=== PATIENT | female | born 2000 | race Two or more races ===

== ENCOUNTER 2023-01-21 19:57 | Inpatient (IN) | payer MEDICAID, SELFPAY ==
[2023-01-21 20:04] VITALS: BP 94/61; PULSE 78; RESP 18; TEMP 36.5; O2SAT 92
[2023-01-21 21:01] LABS: PCR FLU A Negative PCR FLU A (Negative); PCR FLU B Negative PCR FLU B (Negative); PCR RSV Negative PCR RSV (Negative)
[2023-01-21 21:07] VITALS: RESP 16
[2023-01-21 21:27] LABS: SARS PCR* Negative SARS-CoV-2 (Negative)
[2023-01-21 21:52] LABS: Basophils Absolute Auto 0.05 K/uL (0.00-0.30); Basophils Percent Auto 0.8 % (0.0-3.0); Eosinophils Absolute Auto 0.02 K/uL (0.00-0.50); Eosinophils Percent Auto 0.3 % (0.0-7.0); Hematocrit 33.8 % (33.0-51.0); Hemoglobin* 12.4 gm/dL (12.0-16.0); Immature Granulocytes Abs Auto 0.04 K/uL (0.00-0.30); Immature Granulocytes Pct Auto 0.7 %; Lymphocytes Absolute Auto 1.26 K/uL (0.90-2.90); Mean Corpuscular HGB Conc 37 gm/dL (32-36); Mean Corpuscular Hemoglobin 32 pg (26-34); Mean Corpuscular Volume 87 fL (80-100); Monocytes Percent Auto 11.9 % (0.0-11.0); Neutrophils Absolute Auto 3.91 K/uL (1.7-7.0); Neutrophils Percent Auto 65.3 % (42.0-72.0); Platelet Count* 390 K/uL (140-440); RDW Coefficient of Variation % 11.9 % (11.5-15.5); White Blood Count* 5.99 K/uL (4.50-11.00)
[2023-01-21 21:58] LABS: Slide Review Reflex No
--- NOTE | 2023-01-21 22:00 | CRLHL7_ITS ---
For Patients: As a result of the Cures Act, medical imaging exams and procedure reports are released immediately into your electronic medical record. You may view this report before your referring provider. If you have questions, please contact your health care provider. INDICATION: Chest pain. TECHNIQUE: Chest radiographs, 1 view. COMPARISON: None. FINDINGS: Lines/Tubes/Devices: None. Mediastinum: Normal cardiac silhouette. Lungs: No focal consolidation. Airways: The trachea remains midline. Pleura: No pleural effusions or pneumothorax. Bones: No acute osseous abnormalities. Upper Abdomen: Unremarkable. IMPRESSION: No acute cardiopulmonary process. Dictated by Kane Nicolas MD @ 01/21/2023 10:31:45 PM (Electronically Signed)
[2023-01-21 22:04] VITALS: BP 95/59; PULSE 68; RESP 16; O2SAT 100
[2023-01-21] MEDS: 0.9 % SODIUM CHLORIDE 1000 ml 1,000 ML IV (22:08)
--- NOTE | 2023-01-21 22:20 | ED.NURSE ---
K 1.6, Co2 over 40, Na 123 - updated to MD nunez
[2023-01-21] MEDS: 0.9 % SODIUM CHLORIDE 1000 ml 1,000 ML 250 ML IV (23:03)
[2023-01-21 23:18] LABS: Anion Gap 10 mEq/L (7-15); Blood Urea Nitrogen* 35 mg/dL (5-24); Chloride* 63 mmol/L (96-114); Sodium* 125 mmol/L (135-149)
[2023-01-21 23:19] LABS: Alanine Aminotransferase* 24 U/L (4-35); Albumin* 4.8 g/dL (3.3-5.0); Bilirubin Direct* 0.2 mg/dL (0.0-0.5); Bilirubin Total* 0.8 mg/dL (0.1-1.5); Calcium* 9.2 mg/dL (8.4-10.6); Ethanol* < 0.01 % (0.01-0.03); Glucose* 99 mg/dL (60-115); Magnesium* 1.8 mg/dL (1.5-2.6); Total Protein* 8.3 g/dL (6.0-8.3)
[2023-01-21 23:21] LABS: Carbon Dioxide* 52 mmol/L (20-32); Potassium* 2.8 mmol/L (3.6-5.1)
[2023-01-21 23:23] LABS: Procalcitonin* 0.04 ng/mL (<0.50)
[2023-01-21 23:24] LABS: C Reactive Protein* < 0.5 mg/dL (0.5-1.0)
[2023-01-21 23:26] LABS: HCO3 VBG 59 mmol/L (21-28); PCO2 VBG 58 mmHG (40-50); PO2 VBG < 20.0 mmHG (25-47)
[2023-01-21 23:27] LABS: pH VBG 7.66 (7.32-7.43)
[2023-01-21 23:28] LABS: Troponin I* < 0.01 ng/mL (0.01-0.04)
[2023-01-21 23:31] VITALS: BP 98/58; PULSE 64; RESP 14; O2SAT 98
[2023-01-21 23:44] LABS: D Dimer Quantitative* < 0.27 ug/ml (0.00-0.50)
[2023-01-21 23:53] LABS: Thyroid Stimulating Hormone* 0.703 uIU/mL (0.270-4.20)
[2023-01-22] VITALS (13 sets, daily range): BP systolic 76–110; BP diastolic 46–78; PULSE 58–72; RESP 12–18; TEMP 36.4–36.8; O2SAT 96–100; BMI 17.1
[2023-01-22] MEDS: POTASSIUM CHLORIDE 10 MEQ CAPSULE ER 40 MEQ PO ×2 (00:19→04:05)
[2023-01-22] MEDS: POTASSIUM CHLORIDE 10 MEQ/100 ML PIGGYBACK 100 MEQ IVPB ×3 (00:19→05:15)
[2023-01-22 00:20] LABS: Alkaline Phosphatase* 60 U/L (40-150); Aspartate Amino Transferase* 41 U/L (12-35); Creatinine* 1.1 mg/dL (0.5-1.5); Estimated Glomerular Filt Rate 72 ml/min
--- NOTE | 2023-01-22 00:48 | ED.GENADULT ---
HPI - General Adult General Date Seen: 01/22/23 Chief complaint: Shortness of Breath/Dyspnea Stated complaint: Weakness, sick for a week Time Seen by Provider: 01/21/23 20:23 Source: patient and family Mode of arrival: ambulatory Limitations: no limitations History of Present Illness HPI narrative: Patient is a 22-year-old female presents here with her family a feeling unwell for the past week to 2 weeks. She is really nonspecific concerns, as mild shortness of breath headache, overall weakness. She denies any fevers or chills associated with this any sore throat. She denies any redness rashes, she denies any chest pain at all. She does have a history of an eating disorder, was previously in the [employer] program for this. This was in 2021. She tells me she has had been doing well. However there is some concerns with her family that she has relapses they found a lot of old boxes of cathartics in her room. She denies any use of alcohol or drugs. She has a physician in [place]. They live here in [place] but will not established with any physicians here. Family thing she has may have lost weight although she denies this. Related Data Home Medications Medication Instructions Recorded Confirmed No Known Home Medications 01/21/23 01/21/23 Allergies Allergy/AdvReac Type Severity Reaction Status Date / Time No Known Drug Allergies Allergy Verified 01/21/23 20:04 Review of Systems Status of ROS: Reports: 10 or more systems reviewed and unremarkable except as noted in History and below PFSH PFSH Social History Smoking Status: Never smoker Non-prescribed substance use: denies use Exam Narrative: Exam Narrative: On examination in room 5, joe complexion alert and oriented x3, GCS is 15/15, her eyes are sunken. Her pupils are equal round reactive to light there is no scleral icterus redness or TMs are normal oropharynx is normal. Her neck is supple her hydration status of her mucous membranes is normal, she is very thin. Chest is good air entry bilaterally with no wheezing crackles noted her heart sounds are normal current no clicks murmurs or gallops her abdomen is soft and scaphoid. There is no guarding or organomegaly noted. She moves all extremities independently well. Because the has lanugo Const: Vital Signs, click to edit/add: Vital Signs - 24 hr 01/21/23 20:04 12/12/23 21:07 01/21/23 22:04 Temperature 97.7 F Pulse Rate [Pulse Oximeter] 78 68 Respiratory Rate 18 16 16 Blood Pressure [Ri ght Upper Arm] 94/61 95/59 L Pulse Oximetry 92 100 Oxygen Delivery Me thod 01/21/23 23:31 Temperature Pulse Rate [Pulse Oximeter] 64 Respiratory Rate 14 Blood Pressure [Ri ght Upper Arm] 98/58 L Pulse Oximetry 98 Oxygen Delivery Me thod Room Air Documenting provider has reviewed patient's vital signs: yes Course Course ED Course: Patient was seen and assessed, I do suspect that she is dehydrated and this was borne out with her laboratory works, her sodium is critically low at 123, her potassium is low at 2.8, her BUN and creatinine are also high, consistent with pre renal. We have no beds available in [place] currently. And no beds at this institution. We will have to keep her in the ER replenish her fluids. I was able to contact our [facility] health hospitalist.Vahid Samuels, he help me with the fluids, he said replace the potassium hold the fluids for now after she has received approximately to 1250 mL of normal saline. We do not Wanna bring the sodium back to Fast, 6 mEq in 24 hours. He suggested piggyback IV bumps of potassium, along with oral potassium. Recheck basic metabolic profile in 2-3 hours. Reevaluation(s) Time of Reevaluation #1: 01:17 Reevaluation #1: signed over to oncoming ER physician Vital Signs Vital signs: Initial Vital Signs Temperature 97.7 F 01/21/23 20:04 Temperature Source Temporal Artery Scan 01/21/23 20:04 Pulse Rate 78 01/21/23 20:04 Respiratory Rate 18 01/21/23 20:04 Blood Pressure 94/61 01/21/23 20:04 Blood Pressure Mean 72 01/21/23 20:04 Pulse Oximetry 92 01/21/23 20:04 Vital Signs Temperature 97.7 F 01/21/23 20:04 Pulse Rate 78 01/21/23 20:04 Respiratory Rate 18 01/21/23 20:04 Blood Pressure 94/61 01/21/23 20:04 Pulse Oximetry 92 01/21/23 20:04 Temperature 97.7 F 01/21/23 20:04 Pulse Rate 64 01/21/23 23:31 Respiratory Rate 14 01/21/23 23:31 Blood Pressure 98/58 L 01/21/23 23:31 Pulse Oximetry 98 01/21/23 23:31 Oxygen Delivery Method Room Air 01/21/23 23:31 Medications Administered Medications: Generic Name Dose Route Start Last Admin Trade Name Brenna PRN Reason Stop Dose Admin Potassium Chloride 40 meq 01/22/23 00:16 01/22/23 00:19 Potassium Chloride 10 Meq Capsule Er PO 01/22/23 00:17 40 meq ONCE ONE Administration Discontinued Medications Generic Name Dose Route Start Last Admin Trade Name Brenna PRN Reason Stop Dose Admin Sodium Chloride 1,000 mls @ 1,000 mls/hr 01/21/23 21:30 01/21/23 23:03 0.9 % Sodium Chloride 1000 Ml IV 01/21/23 22:29 Infused .Q1H JULIANA Infusion Sodium Chloride 1,000 mls @ 1,000 mls/hr 01/21/23 21:30 01/21/23 23:03 0.9 % Sodium Chloride 1000 Ml IV 01/21/23 22:29 250 mls/hr .Q1H JULIANA Administration Potassium Chloride 10 meq in 100 mls @ 100 mls/hr 01/21/23 23:43 01/22/23 00:19 Potassium Chloride IVPB 01/22/23 00:42 100 mls/hr ONCE ONE Administration Medical Decision Making MDM Narrative Medical decision making narrative: Life-threatening differential diagnosis considered include stroke, coronary artery disease, pneumonia, and heart failure. Other differential diagnosis include but are not limited to electrolyte imbalances, anemia, medication reactions, and urinary tract infection Medical Records Medical records reviewed: Yes I reviewed the patient's medical records Lab Data Lab results reviewed: Yes I reviewed the patient's lab results Labs: Lab Results 01/21/23 01/21/23 01/21/23 Range/Units 20:10 21:40 22:01 WBC 5.99 (4.50-11.00) K/uL RBC 3.90 L (4.00-5.20) m/uL Hgb 12.4 (12.0-16.0) gm/dL Hct 33.8 (33.0-51.0) % MCV 87 (80-100) fL MCH 32 (26-34) pg MCHC 37 H (32-36) gm/dL RDW Coeff of Coy 11.9 (11.5-15.5) % Plt Count 390 (140-440) K/uL Neut % (Auto) 65.3 (42.0-72.0) % Lymph % (Auto) 21.0 (20-44) % Glynn % (Auto) 11.9 H (0.0-11.0) % Eos % (Auto) 0.3 (0.0-7.0) % Baso % (Auto) 0.8 (0.0-3.0) % Neut # (Auto) 3.91 (1.7-7.0) K/uL Lymph # (Auto) 1.26 (0.90-2.90) K/uL Glynn # (Auto) 0.70 (0.00-0.90) K/UL Eos # (Auto) 0.02 (0.00-0.50) K/uL Baso # (Auto) 0.05 (0.00-0.30) K/uL Abs Immat Gran (auto) 0.04 (0.00-0.30) K/uL Imm/Tot Granulo (auto) 0.7 % D-Dimer Quant (PE/DVT) (0.00-0.50) ug/ml VBG pH (7.32-7.43) VBG pCO2 (40-50) mmHG VBG pO2 (25-47) mmHG VBG HCO3 (21-28) mmol/L Sodium 125 L (135-149) mmol/L Potassium 2.8 L* (3.6-5.1) mmol/L Chloride 63 L (96-114) mmol/L Carbon Dioxide 52 H* (20-32) mmol/L Anion Gap 10 (7-15) mEq/L BUN 35 H (5-24) mg/dL Creatinine 1.1 (0.5-1.5) mg/dL Estimated GFR 72 ml/min Glucose 99 (60-115) mg/dL Calcium 9.2 (8.4-10.6) mg/dL Magnesium 1.8 (1.5-2.6) mg/dL Total Bilirubin 0.8 (0.1-1.5) mg/dL Direct Bilirubin 0.2 (0.0-0.5) mg/dL AST 41 H (12-35) U/L ALT 24 (4-35) U/L Alkaline Phosphatase 60 (40-150) U/L Troponin I (0.01-0.04) ng/mL C-Reactive Protein < 0.5 L (0.5-1.0) mg/dL Total Protein 8.3 (6.0-8.3) g/dL Albumin 4.8 (3.3-5.0) g/dL Procalcitonin 0.04 (<0.50) ng/mL TSH 0.703 (0.270-4.20) uIU/mL Urine Color (Yellow) Urine Appearance (Clear) Urine pH (5.0-8.5) Ur Specific Rosebud (1.000-1.030) Urine Protein (Negative) Urine Glucose (UA) (Negative) Urine Ketones (Negative) Urine Blood (Negative) Urine Nitrite (Negative) Urine Bilirubin (Negative) Urine Urobilinogen (0.2-1.0) Ur Leukocyte Esterase (Negative) Urine RBC (0-2) Urine WBC (0-5) Ur Squamous Epith Cells (None-Few) Amorphous Sediment (None) Urine Bacteria (None) Urine Mucus (None) Urine HCG, Qual (Negative) Urine Opiates Screen (Negative) Ur Oxycodone Screen (Negative) Urine Methadone Screen (Negative) Ur Propoxyphene Screen (Negative) Ur Barbiturates Screen (Negative) U Tricyclic Antidepress (Negative) Ur Phencyclidine Scrn (Negative) Ur Amphetamines Screen (Negative) U Methamphetamines Scrn (Negative) U Benzodiazepines Scrn (Negative) Urine Cocaine Screen (Negative) U Marijuana (THC) Screen (Negative) Ur Drug Screen Comment Ethyl Alcohol < 0.01 L (0.01-0.03) % SARS-CoV-2 (PCR) Negative SARS-CoV-2 (Negative) Influenza Type A (PCR) Negative PCR FLU A (Negative) Influenza Type B (PCR) Negative PCR FLU B (Negative) RSV (PCR) Negative PCR RSV (Negative) Lab Acknowledgement Test Added 01/21/23 01/21/23 01/22/23 Range/Units 22:26 22:38 00:40 WBC (4.50-11.00) K/uL RBC (4.00-5.20) m/uL Hgb (12.0-16.0) gm/dL Hct (33.0-51.0) % MCV (80-100) fL MCH (26-34) pg MCHC (32-36) gm/dL RDW Coeff of Coy (11.5-15.5) % Plt Count (140-440) K/uL Neut % (Auto) (42.0-72.0) % Lymph % (Auto) (20-44) % Glynn % (Auto) (0.0-11.0) % Eos % (Auto) (0.0-7.0) % Baso % (Auto) (0.0-3.0) % Neut # (Auto) (1.7-7.0) K/uL Lymph # (Auto) (0.90-2.90) K/uL Glynn # (Auto) (0.00-0.90) K/UL Eos # (Auto) (0.00-0.50) K/uL Baso # (Auto) (0.00-0.30) K/uL Abs Immat Gran (auto) (0.00-0.30) K/uL Imm/Tot Granulo (auto) % D-Dimer Quant (PE/DVT) < 0.27 (0.00-0.50) ug/ml VBG pH 7.66 H* (7.32-7.43) VBG pCO2 58 H (40-50) mmHG VBG pO2 < 20.0 L (25-47) mmHG VBG HCO3 59 H (21-28) mmol/L Sodium (135-149) mmol/L Potassium (3.6-5.1) mmol/L Chloride (96-114) mmol/L Carbon Dioxide (20-32) mmol/L Anion Gap (7-15) mEq/L BUN (5-24) mg/dL Creatinine (0.5-1.5) mg/dL Estimated GFR ml/min Glucose (60-115) mg/dL Calcium (8.4-10.6) mg/dL Magnesium (1.5-2.6) mg/dL Total Bilirubin (0.1-1.5) mg/dL Direct Bilirubin (0.0-0.5) mg/dL AST (12-35) U/L ALT (4-35) U/L Alkaline Phosphatase (40-150) U/L Troponin I < 0.01 L (0.01-0.04) ng/mL C-Reactive Protein (0.5-1.0) mg/dL Total Protein (6.0-8.3) g/dL Albumin (3.3-5.0) g/dL Procalcitonin (<0.50) ng/mL TSH (0.270-4.20) uIU/mL Urine Color Yellow (Yellow) Urine Appearance Cloudy A (Clear) Urine pH 8.5 (5.0-8.5) Ur Specific Rosebud 1.015 (1.000-1.030) Urine Protein 2+ A (Negative) Urine Glucose (UA) Negative (Negative) Urine Ketones 1+ A (Negative) Urine Blood Negative (Negative) Urine Nitrite Negative (Negative) Urine Bilirubin Negative (Negative) Urine Urobilinogen 0.2 (0.2-1.0) Ur Leukocyte Esterase Negative (Negative) Urine RBC 0-2 (0-2) Urine WBC 0-2 (0-5) Ur Squamous Epith Cells Few (None-Few) Amorphous Sediment Few A (None) Urine Bacteria Few A (None) Urine Mucus Few A (None) Urine HCG, Qual Negative (Negative) Urine Opiates Screen Negative (Negative) Ur Oxycodone Screen Negative (Negative) Urine Methadone Screen Negative (Negative) Ur Propoxyphene Screen Negative (Negative) Ur Barbiturates Screen Negative (Negative) U Tricyclic Antidepress Negative (Negative) Ur Phencyclidine Scrn Negative (Negative) Ur Amphetamines Screen Negative (Negative) U Methamphetamines Scrn Negative (Negative) U Benzodiazepines Scrn Negative (Negative) Urine Cocaine Screen Negative (Negative) U Marijuana (THC) Screen Negative (Negative) Ur Drug Screen Comment See Note Ethyl Alcohol (0.01-0.03) % SARS-CoV-2 (PCR) (Negative) Influenza Type A (PCR) (Negative) Influenza Type B (PCR) (Negative) RSV (PCR) (Negative) Lab Acknowledgement Test Added Discharge Plan Discharge Clinical Impression: Acute dehydration, History of eating disorder, Weakness, Acute hyponatremia, Acute hypokalemia Patient Disposition: Admitted As Observation Condition: Guarded Prescriptions: No Action No Known Home Medications Follow Up/Referrals: Provider,Not a Local [Primary Care Provider] -
[2023-01-22 00:59] LABS: Appearance Urine Cloudy (Clear); Bilirubin Urine Negative (Negative); Blood Urine Negative (Negative); Color Urine Yellow (Yellow); Glucose Urine Negative (Negative); Ketones Urine 1+ (Negative); Leukocyte Esterase Urine Negative (Negative); Nitrite Urine Negative (Negative); Protein Urine 2+ (Negative); Specific Gravity Urine 1.015 (1.000-1.030); Urobilinogen Urine 0.2 (0.2-1.0); pH Urine 8.5 (5.0-8.5)
[2023-01-22 01:06] LABS: Amorphous Sediment Urine Few; Bacteria Urine Few; Mucus Urine Few; RBC Urine 0-2 (0-2); Squamous Epithelial Cell Urine Few (None-Few); Ur HCG Qualitative* Negative (Negative); WBC Urine 0-2 (0-5)
[2023-01-22 01:08] LABS: Amphetamine Screen Urine Negative (Negative); Barbiturate Screen Urine Negative (Negative); Benzodiazepines Screen Urine Negative (Negative); Cannabinoid Screen Urine Negative (Negative); Cocaine Screen Urine Negative (Negative); Methadone Screen Urine Negative (Negative); Methamphetamines Screen Urine Negative (Negative); Opiate Screen Urine Negative (Negative); Oxycodone Screen Urine Negative (Negative); Phencyclidine Screen Urine Negative (Negative); Tricyclic Antidepressant Urine Negative (Negative)
[2023-01-22] MEDS: 0.9 % SODIUM CH + KCL 20 mEq/L 1,000 ML 100 ML IV ×2 (04:15→15:08)
[2023-01-22 06:39] LABS: Chloride* 67 mmol/L (96-114); Potassium* 2.1 mmol/L (3.6-5.1); Sodium* 124 mmol/L (135-149)
[2023-01-22 06:40] LABS: Anion Gap 5 mEq/L (7-15); Blood Urea Nitrogen* 30 mg/dL (5-24); Calcium* 8.5 mg/dL (8.4-10.6); Carbon Dioxide* 52 mmol/L (20-32); Estimated Glomerular Filt Rate 81 ml/min; Glucose* 96 mg/dL (60-115); Phosphorus* 3.5 mg/dL (2.5-4.5)
--- NOTE | 2023-01-22 07:33 | ED.NURSE ---
Pt ambulatory to the restroom independently.
--- NOTE | 2023-01-22 08:00 | ED.NURSE ---
Report called to M/S RN.
[2023-01-22 08:31] LABS: Chloride* 74 mmol/L (96-114); Sodium* 128 mmol/L (135-149)
[2023-01-22 08:34] LABS: Blood Urea Nitrogen* 25 mg/dL (5-24); Creatinine* 0.9 mg/dL (0.5-1.5); Est. Creatinine Clearance* 69.31; Estimated Glomerular Filt Rate 92 ml/min; Glucose* 98 mg/dL (60-115)
[2023-01-22 08:35] LABS: Calcium* 9.2 mg/dL (8.4-10.6)
[2023-01-22 08:49] LABS: Potassium* 2.7 mmol/L (3.6-5.1)
[2023-01-22 08:50] LABS: Anion Gap 8 mEq/L (7-15); Carbon Dioxide* 46 mmol/L (20-32)
--- NOTE | 2023-01-22 09:57 | CRLHL7_ITS ---
For Patients: As a result of the Century Cures Act, medical imaging exams and procedure reports are released immediately into your electronic medical record. You may view this report before your referring provider. If you have questions, please contact your health care provider. Indication: abdominal pain, constipation Technique: Abdomen 1 view. Comparison: None. Findings: Bowel: Bowel pattern is normal. The amount of colonic stool is moderate. Other: No sign of free air. No sign of soft tissue mass. No suspicious calcifications. Osseous structures are unremarkable for age. Impression: Moderate stool throughout the colon consistent with constipation. Dictated by Brock Young MD @ 01/22/2023 10:49:21 AM (Electronically Signed)
[2023-01-22 10:34] LABS: Chloride* 77 mmol/L (96-114); Sodium* 128 mmol/L (135-149)
[2023-01-22 10:37] LABS: Blood Urea Nitrogen* 24 mg/dL (5-24); Calcium* 9.1 mg/dL (8.4-10.6); Creatinine* 0.9 mg/dL (0.5-1.5); Est. Creatinine Clearance* 69.31; Estimated Glomerular Filt Rate 92 ml/min; Glucose* 98 mg/dL (60-115)
[2023-01-22 10:58] LABS: Anion Gap 8 mEq/L (7-15); Carbon Dioxide* 43 mmol/L (20-32)
--- NOTE | 2023-01-22 11:32 | P.IMHP_ITS ---
Hospitalist- H&P: HPI History of Present Illness Date Seen: 01/22/23 Chief complaint: Weakness, sick for a week Narrative: Sun Mcgovern is a 22 year old female past medical history significant for anorexia nervosa with bulimia, laxative misuse, amenorrheic, not on any prescription medications is admitted to the medical floor from the ED for further management electrolyte derangement, dehydration. Patient is seen with her mother at bedside. She reports not feeling well in general for the past 2 weeks. Initially felt as though she had an upper respiratory infection, with occasional cough, ear fullness. This progressed to weakness, mentation which she finds hard to describe other than similar to fogginess, dizziness with presyncopal sensation (without syncope), nausea and vomiting, and decreased oral intake in the past week. She last vomited on 01/17. She has decreased bowel movements which she figured were related to poor oral intake. Her last bowel movement was yesterday but small and hard. Denies black stools or streaking blood. Denies change in urination or UTI symptoms. She has had occasional headaches but none currently. Dizziness has improved since admission. She felt feverish over the last several days but no temperature taken. Denies chest pain or shortness of breath. No significant cough. Reports stomach aches leading to decreased oral intake. She has a history of anorexia nervosa with bulimia, previously treated inpatient from November to December 2019. This was followed by outpatient management in [facility] in February of 2020. She denies recent active disease or misuse of laxatives. She reports eating a lot prior to not feeling well a couple of weeks ago. She denies use of laxatives thereafter though it was reported her mother found an empty box of laxatives in her belongings. Her mother is concerned that her previous patterns were to eat a lot and then use the laxative. She is concerned how this affects her health. Nonsmoker. Occasional alcohol use every 1-2 [address] drug use. She has never been . She does not get a regular period which her PCP told her would be her new normal with her eating disorder. Review of Systems Narrative: REVIEW OF SYSTEMS: Complete review of systems performed and negative unless otherwise stated in HPI or below. [facility] Medical History Anorexia nervosa with bulimia ?F50.02 - Anorexia nervosa, binge eating/purging type (ICD-10) Surgical History History of placement of ear tubes ?Z96.22 - Myringotomy tube(s) status (ICD-10) Social History What is your current living situation?: I presently have a place to live Problems where you live: no known problems Problems where you live details: none In the past 12 months, utilities in danger of being shut off: no In past 12 months, lack of transportation kept you from medical appts, meetings, work, or getting things needed for daily living: no In the past 12 mos, have been you worried that your food would run out before you had money to buy more?: never true In the past 12 mos, the food you bought just didn't last and you didn't have money to buy more?: never true Highest level of school completed/degree received: Associate degree: occupational, technical, vocational program Smoking Status: Never smoker How often do you have a drink containing alcohol: monthly or less Alcohol type: hard liquor How many standard drinks containing alcohol do you have on a typical day: 1 or 2 How often do you have six or more drinks on one occasion: Never AUDIT-C Alcohol total score: 1 Non-prescribed substance use: denies use How often does anyone, including family, friends and others, physically hurt you : never How often does anyone, including family, friends and others, insult or talk down to you: never How often does anyone, including family, friends and others, threaten you with harm: never How often does anyone, including family, friends and others, scream or curse at you: never service: No Meds Home Medications and Allergies Home Medications Medication Instructions Recorded Confirmed Type No Known Home Medications 01/21/23 01/21/23 History Home Medication Comments: No prescription medications Allergies Allergy/AdvReac Type Severity Reaction Status Date / Time No Known Drug Allergies Allergy Verified 01/21/23 20:04 Exam Narrative: Exam Narrative: PHYSICAL EXAM General: Very thin, pleasant, conversant, NAD HEENT: Normocephalic, atraumatic, sclera white, EOMI, oral mucosa moist Cardiovascular: RRR, S1S2. No pitting edema Pulmonary: CTA bilaterally without rhonchi, rales, expiratory wheezes. No dyspnea Abdominal: Thin, soft, nondistended, NTTP, no guarding Neurological: Alert, answering questions appropriately, cranial nerves intact, no focal findings Extremities: No gross joint deformity or swelling. AROMI. Neurovascularly intact Skin: Warm, dry. Const: Vital Signs, click to edit/add: Vital Signs - 24 hr 01/21/23 20:04 01/21/23 21:07 01/21/23 22:04 Temperature 97.7 F Pulse Rate Pulse Rate [Pulse Oximeter] 78 68 Pulse Rate [orthos tatic lying Left] Pulse Rate [orthos tatic sitting Left ] Pulse Rate [orthos tatic standing Lef t] Respiratory Rate 18 16 16 Blood Pressure [Le ft Arm] Blood Pressure [Ri ght Upper Arm] 94/61 95/59 L Blood Pressure [or thostatic lying Le ft Arm] Blood Pressure [or thostatic sitting Left Arm] Blood Pressure [or thostatic standing Left Arm] Pulse Oximetry 92 100 Oxygen Delivery Me thod 01/21/23 23:31 01/22/23 00:00 01/22/23 04:15 Temperature 98.2 F Pulse Rate Pulse Rate [Pulse Oximeter] 64 68 Pulse Rate [orthos tatic lying Left] Pulse Rate [orthos tatic sitting Left ] Pulse Rate [orthos tatic standing Lef t] Respiratory Rate 14 14 Blood Pressure [Le ft Arm] Blood Pressure [Ri ght Upper Arm] 98/58 L 110/78 Blood Pressure [or thostatic lying Le ft Arm] Blood Pressure [or thostatic sitting Left Arm] Blood Pressure [or thostatic standing Left Arm] Pulse Oximetry 98 98 98 Oxygen Delivery Me thod Room Air Room Air 01/22/23 06:51 01/22/23 07:34 01/22/23 08:07 Temperature 98.2 F 97.6 F Pulse Rate Pulse Rate [Pulse Oximeter] 68 58 L 64 Pulse Rate [orthos tatic lying Left] Pulse Rate [orthos tatic sitting Left ] Pulse Rate [orthos tatic standing Lef t] Respiratory Rate 14 14 Blood Pressure [Le ft Arm] 97/55 L Blood Pressure [Ri ght Upper Arm] 103/67 97/53 L Blood Pressure [or thostatic lying Le ft Arm] Blood Pressure [or thostatic sitting Left Arm] Blood Pressure [or thostatic standing Left Arm] Pulse Oximetry 98 99 100 Oxygen Delivery Me thod Room Air Room Air Room Air 01/22/23 10:40 01/22/23 10:48 01/22/23 11:06 Temperature 98 F Pulse Rate Pulse Rate [Pulse Oximeter] 64 Pulse Rate [orthos tatic lying Left] 65 Pulse Rate [orthos tatic sitting Left ] 65 Pulse Rate [orthos tatic standing Lef t] 72 Respiratory Rate 14 12 Blood Pressure [Le ft Arm] 86/51 L Blood Pressure [Ri ght Upper Arm] Blood Pressure [or thostatic lying Le ft Arm] 90/54 L Blood Pressure [or thostatic sitting Left Arm] 94/62 Blood Pressure [or thostatic standing Left Arm] 96/66 Pulse Oximetry 99 99 Oxygen Delivery Me thod Room Air Room Air 01/22/23 11:06 01/22/23 11:18 Temperature 98 F Pulse Rate 64 Pulse Rate [Pulse Oximeter] 65 Pulse Rate [orthos tatic lying Left] Pulse Rate [orthos tatic sitting Left ] Pulse Rate [orthos tatic standing Lef t] Respiratory Rate 12 Blood Pressure [Le ft Arm] 90/54 L Blood Pressure [Ri ght Upper Arm] Blood Pressure [or thostatic lying Le ft Arm] Blood Pressure [or thostatic sitting Left Arm] Blood Pressure [or thostatic standing Left Arm] Pulse Oximetry 99 Oxygen Delivery Me thod Room Air Hospitalist - H&P: Result Labs Labs: Short CBC 01/21/23 Range/Units 21:40 WBC 5.99 (4.50-11.00) K/uL Hgb 12.4 (12.0-16.0) gm/dL Hct 33.8 (33.0-51.0) % Plt Count 390 (140-440) K/uL BMP 01/21/23 01/22/23 01/22/23 21:40 03:10 08:09 Sodium 125 L 124 L* 128 L Potassium 2.8 L* 2.1 L* 2.7 L* Chloride 63 L 67 L 74 L Carbon Dioxide 52 H* 52 H* 46 H* BUN 35 H 30 H 25 H Creatinine 1.1 1.0 0.9 Glucose 99 96 98 Calcium 9.2 8.5 9.2 01/22/23 10:12 Sodium 128 L Potassium 3.0 L Chloride 77 L Carbon Dioxide 43 H* BUN 24 Creatinine 0.9 Glucose 98 Calcium 9.1 Cardiac Enzymes 01/21/23 Range/Units 22:38 Troponin I < 0.01 L (0.01-0.04) ng/mL Liver Function 01/21/23 Range/Units 21:40 Total Bilirubin 0.8 (0.1-1.5) mg/dL Direct Bilirubin 0.2 (0.0-0.5) mg/dL AST 41 H (12-35) U/L ALT 24 (4-35) U/L Alkaline Phosphatase 60 (40-150) U/L Albumin 4.8 (3.3-5.0) g/dL Urine 01/22/23 Range/Units 00:40 Urine Color Yellow (Yellow) Urine Appearance Cloudy A (Clear) Urine pH 8.5 (5.0-8.5) Ur Specific [place] 1.015 (1.000-1.030) Urine Protein 2+ A (Negative) Urine Glucose (UA) Negative (Negative) ECG Attestation: I personally reviewed and interpreted this ECG as follows: Interpretation: NSR, prolonged QT/QTC Imaging Abdominal x-ray: Attestation: I have reviewed the pertinent imaging results. Radiologist's impression: Abdomen 1 view. Comparison: None. Findings: Bowel: Bowel pattern is normal. The amount of colonic stool is moderate. Other: No sign of free air. No sign of soft tissue mass. No suspicious calcifications. Osseous structures are unremarkable for age. Impression: Moderate stool throughout the colon consistent with constipation Chest x-ray: Attestation: I have reviewed the pertinent imaging results. Radiologist's impression: Chest radiographs, 1 view. COMPARISON: None. FINDINGS: Lines/Tubes/Devices: None. Mediastinum: Normal cardiac silhouette. Lungs: No focal consolidation. Airways: The trachea remains midline. Pleura: No pleural effusions or pneumothorax. Bones: No acute osseous abnormalities. Upper Abdomen: Unremarkable. IMPRESSION: No acute cardiopulmonary process. Assessment and Plan Assessment and plan (1) Acute hypokalemia: Problem comment: -in setting of decreased oral intake, h/o (denies active) anorexia nervosa with bulimia with laxative use, acute constipation -initial potassium in the ED verbally reported as <2.0. EKG shows NSR, prolonged QT. QTC 517, ventricular rate 66 -improved to 3.0 following oral and IV supplementation -continue replacement and close monitoring -recheck at 1400pm Status: Acute (2) Acute hyponatremia: Problem comment: -sodium 125 in ED -improved to 128 following NS bolus and maintenance fluids -goal 4-6 mEq/L over 24 hour period -recheck at 1400pm Status: Acute (3) History of eating disorder: Problem comment: -denies active disease or intentional misuse of laxatives -dx with Anorexia Nervosa with bulimia. Use of laxatives. Inpatient treatment Nov-Dec 2019 followed by outpatient therapy, [facility], Feb 2020 -social work administrator for evaluation Status: Acute (4) Acute dehydration: Problem comment: -in setting of poor oral intake, electrolyte derangement -IVF hydration, electrolyte replacement, monitoring -IV Compazine p.r.n. for any further nausea. Avoiding Zofran given prolonged QTC, history of eating disorder Status: Acute (5) Constipation: Problem comment: -reported abdominal discomfort with eating prior to arrival leading to decreased oral intake. No bleeding concerns reported. Abdominal film shows moderate stool throughout the colon which may be partial cause -bid docusate sodium. Would avoid laxative use given history of misuse and current electrolyte derangement -consider further imaging if new or worsening symptoms or no resolve Status: Acute (6) Weakness: Problem comment: -in setting of above. Should improve with current therapies. Monitor -given decreased activity, will use Enoxaparin as VTE until more mobile Status: Acute Assessment and Plan: CODE: Full VTE PPX: Enoxaparin until increased activity/mobility Disposition: Inpatient
[2023-01-22 14:27] LABS: Chloride* 79 mmol/L (96-114); Sodium* 128 mmol/L (135-149)
[2023-01-22 14:30] LABS: Blood Urea Nitrogen* 22 mg/dL (5-24); Creatinine* 0.9 mg/dL (0.5-1.5); Est. Creatinine Clearance* 69.31; Estimated Glomerular Filt Rate 92 ml/min; Glucose* 102 mg/dL (60-115)
[2023-01-22 14:31] LABS: Calcium* 8.9 mg/dL (8.4-10.6)
[2023-01-22 14:43] LABS: Anion Gap 5 mEq/L (7-15); Carbon Dioxide* 44 mmol/L (20-32); Potassium* 2.7 mmol/L (3.6-5.1)
[2023-01-22] MEDS: POTASSIUM BICARB 25 MEQ EFFERVESCENT TAB PO ×2 (18:06→20:32)
--- NOTE | 2023-01-22 19:25 | PC.NURSE ---
End of Shift: Patient pleasant and cooperative. Patient vitally stable, lungs clear, BS WNL, IV running KCL/NS at 100. Patient independent in room. Patient denies pain. Patient tolerating regular diet and eating majority of meals. Patient urinating and had 1 small hard BM. Tele=NSR.
[2023-01-22] MEDS: ENOXAPARIN 40 MG/0.4 ML INJ SUBCUT (20:32)
[2023-01-22] MEDS: SENNOSIDES/DOCUSATE TABLET 1 TAB PO (20:32)
[2023-01-22 21:48] LABS: Chloride* 83 mmol/L (96-114); Potassium* 3.2 mmol/L (3.6-5.1); Sodium* 127 mmol/L (135-149)
[2023-01-22 21:51] LABS: Blood Urea Nitrogen* 17 mg/dL (5-24); Calcium* 8.6 mg/dL (8.4-10.6); Creatinine* 0.7 mg/dL (0.5-1.5); Est. Creatinine Clearance* 89.11; Estimated Glomerular Filt Rate 125 ml/min; Glucose* 83 mg/dL (60-115)
[2023-01-22 21:58] LABS: Anion Gap 9 mEq/L (7-15); Carbon Dioxide* 35 mmol/L (20-32)
--- NOTE | 2023-01-22 22:43 | PC.NURSE ---
Shift [id number]- Patient denies pain. She is surrounded by family throughout evening. She remains in bed, up independently.
[2023-01-23] VITALS (10 sets, daily range): BP systolic 85–102; BP diastolic 44–63; PULSE 60–76; RESP 12–18; TEMP 36.3–36.7; O2SAT 100; BMI 17.8
[2023-01-23] MEDS: 0.9 % SODIUM CH + KCL 20 mEq/L 1,000 ML 100 ML IV (02:41)
[2023-01-23] MEDS: 0.9 % SODIUM CHLORIDE 500 ML 500 ML IV (03:27)
--- NOTE | 2023-01-23 05:45 | PC.NURSE ---
End of shift [id number]: Pt A&O and afebrile overnight. Independent in her room. Pt had low BP?s ranging from 70s/40s to 90s/40s > 500mL bolus given x1. BP recheck after bolus 97/63. Pt denied having any pain, nausea or dizziness overnight. Her sister spent the night at bedside. PIV in right AC infusing NS @ 100 mL/hr. TELE reading NSR rate in the 60s. No bowel movement overnight. Total U/O: 500cc. ?
[2023-01-23 06:50] LABS: Hematocrit 27.3 % (33.0-51.0); Hemoglobin* 9.5 gm/dL (12.0-16.0); Mean Corpuscular HGB Conc 35 gm/dL (32-36); Mean Corpuscular Hemoglobin 32 pg (26-34); Mean Corpuscular Volume 92 fL (80-100); Platelet Count* 283 K/uL (140-440); Red Blood Count 2.96 m/uL (4.00-5.20)
[2023-01-23 06:53] LABS: Slide Review Reflex No
[2023-01-23 07:02] LABS: Chloride* 92 mmol/L (96-114); Potassium* 3.2 mmol/L (3.6-5.1); Sodium* 131 mmol/L (135-149)
[2023-01-23 07:05] LABS: Anion Gap 1 mEq/L (7-15); Blood Urea Nitrogen* 14 mg/dL (5-24); Calcium* 8.5 mg/dL (8.4-10.6); Carbon Dioxide* 38 mmol/L (20-32); Creatinine* 0.7 mg/dL (0.5-1.5); Estimated Glomerular Filt Rate 125 ml/min; Glucose* 81 mg/dL (60-115)
[2023-01-23 07:06] LABS: Magnesium* 1.5 mg/dL (1.5-2.6)
[2023-01-23] MEDS: 0.9 % SODIUM CH + KCL 20 mEq/L 1,000 ML 50 ML IV ×2 (09:26→13:32)
[2023-01-23] MEDS: SENNOSIDES/DOCUSATE TABLET 1 TAB PO ×2 (09:27→20:38)
[2023-01-23] MEDS: PROCHLORPERAZINE 5 MG/ML VIAL IV (13:32)
--- NOTE | 2023-01-23 14:37 | P.IMPN_ITS ---
Progress Note: A&P Assessment and plan (1) Acute hypokalemia: Problem details: -in setting of decreased oral intake, h/o (denies active) anorexia nervosa with bulimia with laxative use, acute constipation -initial potassium in the ED verbally reported as <2.0. EKG shows NSR, prolonged QT. QTC 517, ventricular rate 66 01/23: trending up, 3.2 this morning, following supplementation oral and NS with KCl -continue with further replacement and recheck in a.m. Status: Acute (2) Acute hyponatremia: Problem details: -sodium 125 in ED -improved to 128 following NS bolus and maintenance fluids -goal 4-6 mEq/L over 24 hour period 01/23: 131 this morning. Will decrease NS IVF to 50ml/hr given improved oral improvement. Recheck in a.m. Status: Acute (3) History of eating disorder: Problem details: -denies active disease or intentional misuse of laxatives -dx with Anorexia Nervosa with bulimia. Use of laxatives. Inpatient treatment Nov-Dec 2019 followed by outpatient therapy, [facility], Feb 2020 -social worker psychiatric for evaluation Status: Acute (4) Acute dehydration: Problem details: -in setting of poor oral intake, electrolyte derangement -IVF hydration, electrolyte replacement, monitoring -IV Compazine p.r.n. for any further nausea. Avoiding Zofran given prolonged QTC, history of eating disorder 01/23: Clinically improving, labs trending appropriately, will decrease IVF in setting of improved oral intake, continuing to monitor Status: Acute (5) Constipation: Problem details: -reported abdominal discomfort with eating prior to arrival leading to decreased oral intake. No bleeding concerns reported. Abdominal film shows moderate stool throughout the colon which may be partial cause -bid docusate sodium. Would avoid laxative use given history of misuse and current electrolyte derangement -consider further imaging if new or worsening symptoms or no resolve- currently asymptomatic Status: Acute (6) Weakness: Problem details: -in setting of above. Should improve with current therapies. Monitor -given decreased activity, will use Enoxaparin as VTE until more mobile 01/23: ambulatory, c/o mild dizziness, remains vitally stable, improved oral intake Status: Acute (7) Anemia: Problem details: -acute, 9.5, suspected in setting of IV hydration. IVF have been decreased, recheck in a.m. Status: Acute Plan creative services director to meet with patient discussed resources for outpatient follow- up. Possible discharge 01/24 with continued improvement, stabilization of electrolytes. Time Spent With Patient Total time spent: Total time spent caring for the patient today was 45 minutes. This includes time spent for the visit reviewing the chart, time spent during the visit, time spent after the visit and documentation and planning in coordination of care. Subjective Date Seen: 01/23/23 Interval history: Patient is sleeping this morning, easily woken. Seen with sister at bedside. Has no complaints this morning. Denies headache. Though nursing reports she was complaining of mild dizziness with ambulation later in the morning - r emaining vitally stable. No chest pain or shortness of breath. Denies nausea or vomiting. Reports eating solids and drinking fluids without abdominal pain or discomfort last night. No bowel movement. Labs continue to improve overnight, sodium 131, potassium 3.2, carbon dioxide 38, BUN 14. Exam Narrative: Exam Narrative: PHYSICAL EXAM General: Very thin, pleasant, conversant, NAD Cardiovascular: RRR, S1S2. No pitting edema Pulmonary: CTA bilaterally without rhonchi, rales, expiratory wheezes. No dyspnea Abdominal: Thin, soft, nondistended, NTTP, no guarding Neurological: Alert, answering questions appropriately, cranial nerves intact, no focal findings Extremities: No gross joint deformity or swelling. AROMI. Neurovascularly intact Skin: Warm, dry. Const: Vital Signs, click to edit/add: Vital Signs - 24 hr 01/22/23 15:00 01/22/23 15:45 01/22/23 19:25 Temperature 98.1 F 98.1 F Pulse Rate Pulse Rate [Pulse Oximeter] 65 65 71 Respiratory Rate 12 12 18 Blood Pressure [Le ft Arm] 96/57 L 92/49 L Blood Pressure [Ri ght Arm] Pulse Oximetry 99 99 Oxygen Delivery Me thod Room Air Room Air 01/22/23 23:00 01/22/23 23:00 01/23/23 00:56 Temperature 98 F Pulse Rate 64 Pulse Rate [Pulse Oximeter] 67 67 Respiratory Rate 16 16 Blood Pressure [Le ft Arm] 76/46 L Blood Pressure [Ri ght Arm] 91/48 L Pulse Oximetry 96 Oxygen Delivery Me thod Room Air 01/23/23 03:00 01/23/23 05:45 01/23/23 09:15 Temperature 98 F 97.8 F Pulse Rate Pulse Rate [Pulse Oximeter] 60 70 Respiratory Rate 16 12 Blood Pressure [Le ft Arm] 89/51 L Blood Pressure [Ri ght Arm] 85/44 L 97/63 Pulse Oximetry 100 100 Oxygen Delivery Me thod Room Air Room Air 01/23/23 11:15 01/23/23 12:50 Temperature Pulse Rate 61 Pulse Rate [Pulse Oximeter] 75 Respiratory Rate 16 Blood Pressure [Le ft Arm] 102/61 Blood Pressure [Ri ght Arm] Pulse Oximetry 100 Oxygen Delivery Ak thod Room Air Labs Labs: Laboratory Results - last 24 hr 01/22/23 01/22/23 01/23/23 13:58 21:26 06:23 WBC 3.80 L RBC 2.96 L Hgb 9.5 L Hct 27.3 L MCV 92 MCH 32 MCHC 35 Plt Count 283 Sodium 128 L 127 L 131 L Potassium 2.7 L* 3.2 L 3.2 L Chloride 79 L 83 L 92 L Carbon Dioxide 44 H* 35 H 38 H Anion Gap 5 L 9 1 L BUN 22 17 14 Creatinine 0.9 0.7 0.7 Estimated Creat Clear 69.31 89.11 92.90 Estimated GFR 92 125 125 Glucose 102 83 81 Calcium 8.9 8.6 8.5 Magnesium 1.5
--- NOTE | 2023-01-23 15:16 | PC.NURSE ---
End of shift [id number] - Pt alert, oriented, and fatigued during shift. Pt observed to sleep into the late morning. Up independently in the room, reported feeling persistent dizziness while sitting and standing. VS recorded and MD notified, no orders received at that time. Family at bedside, pt tolerating RA and regular diet. Denies pain and SOB. Pt reported nausea in afternoon, given PRN interventions per APR. Behavior indicated relief. Pt observed to be resting comfortably at end of shift.
[2023-01-23] MEDS: POTASSIUM CHLORIDE 10 MEQ CAPSULE ER 20 MEQ PO ×2 (15:32→17:45)
--- NOTE | 2023-01-23 16:07 | PC.SOCIAL ---
Met with pt and pt's family members to discuss discharge plans. Pt recently moved to [place] about a year ago and does not participate in any after treatment programming with the [facility]. Informed pt that [facility] does have outpatient services and they provide virtual visits as an option. Pt is interested in mental health therapy and finding a therapist in the [place] area. Pt does not currently participate in any mental health therapy. Provided pt with a listing of mental health therapists in [facility]. Discussed following up with Juana Bronson in Nutrition services via outpatient visits. Juana has experience with eating disorders. Pt is interested and will reach out to Juana in Nutrition services. Provided pt with the phone number to social work if she has any further questions. Social work will follow up as needed.
[2023-01-23] MEDS: ENOXAPARIN 40 MG/0.4 ML INJ SUBCUT (20:39)
--- NOTE | 2023-01-23 22:23 | PC.NURSE ---
Shift [id number]- Patient denies pain throughout shift. Family members at bedside throughout. She orders fresh fruit and ice cream for supper. Large formed stool this evening, voiding.
[2023-01-24 00:15] VITALS: BP 84/50; PULSE 76; RESP 16; TEMP 36.8; O2SAT 99
[2023-01-24 00:42] VITALS: PULSE 69
[2023-01-24 03:00] VITALS: BP 82/45; PULSE 78; RESP 16; TEMP 36.6; O2SAT 98
--- NOTE | 2023-01-24 06:42 | PC.NURSE ---
SHIFT NOTE -: Pt alert and oriented, fatigued. Denies pain, SOB, CP, and N/V. Up independent in room. Pt had soft BP's overnight, updated 84/50 and 82/45, no new orders received. Pt asymptomatic with low BP's. Pt denies dizziness or lightheadedness with ambulation. Encouraged fluids. Pt's sister spent the night.
[2023-01-24 06:43] LABS: Hemoglobin* 9.2 gm/dL (12.0-16.0); Red Blood Count 2.84 m/uL (4.00-5.20); White Blood Count* 4.37 K/uL (4.50-11.00)
[2023-01-24 06:44] LABS: Hematocrit 26.9 % (33.0-51.0); Mean Corpuscular HGB Conc 34 gm/dL (32-36); Mean Corpuscular Hemoglobin 32 pg (26-34); Mean Corpuscular Volume 95 fL (80-100); Platelet Count* 299 K/uL (140-440)
[2023-01-24 06:48] LABS: Slide Review Reflex No
[2023-01-24 06:52] LABS: Chloride* 101 mmol/L (96-114); Potassium* 3.7 mmol/L (3.6-5.1); Sodium* 136 mmol/L (135-149)
[2023-01-24 06:55] LABS: Anion Gap 4 mEq/L (7-15); Blood Urea Nitrogen* 12 mg/dL (5-24); Carbon Dioxide* 31 mmol/L (20-32); Creatinine* 0.6 mg/dL (0.5-1.5); Est. Creatinine Clearance* 112.77; Estimated Glomerular Filt Rate 129 ml/min; Glucose* 81 mg/dL (60-115)
[2023-01-24 06:56] LABS: Calcium* 8.3 mg/dL (8.4-10.6); Magnesium* 1.4 mg/dL (1.5-2.6)
[2023-01-24 07:00] VITALS: BP 94/53; PULSE 71; PULSE 79; RESP 16; O2SAT 100
[2023-01-24] MEDS: SENNOSIDES/DOCUSATE TABLET 1 TAB PO (09:32)
[2023-01-24] MEDS: POTASSIUM CHLORIDE 10 MEQ CAPSULE ER 20 MEQ PO (09:32)
[2023-01-24] MEDS: MAGNESIUM OXIDE 400 MG TABLET PO (09:32)
--- NOTE | 2023-01-24 10:09 | P.DS_ITS ---
DS: Providers Provider Date Seen: 01/24/23 Date of admission: 01/22/23 08:53 Primary care physician: Not a Local Provider Admitting Clinician: Valeria Blanchard MD Consults: 01/22/23 09:52 Consult to Core Measures Abstractor [CONS] Routine Comment: Reason for Consult:: Social Service Consult Attending Phys[facility] on discharge[facility] SUNIL Walter[facility] Date of Discharge: 01/24/23 DS: Diagnosis Discharge Diagnosis (1) Acute hypokalemia: Status: Acute Problem details: In setting of decreased oral intake, h/o (denies active) anorexia nervosa with bulimia with laxative use, acute constipation Initial potassium in the ED verbally reported as <2.0. EKG shows NSR, prolonged QT. QTC 517, ventricular rate 66 Resolved, 3.7 on day of discharge, following IV or oral replacement (2) Acute hyponatremia: Status: Acute Problem details: Sodium 125 in ED. Resolved, 136 on day of discharge, following IVF replacement and improved oral intake. (3) History of eating disorder: Status: Acute Problem details: On admission, denies active disease or intentional misuse of laxatives Dx with Anorexia Nervosa with bulimia. Use of laxatives. Inpatient treatment Nov-Dec 2019 followed by outpatient therapy, [facility] Espinosa, Feb 2020 Core Measures Abstractor met with patient to readdress available resources. Encouraged to follow up with [facility] (numbers provided) (4) Acute dehydration: Status: Acute Problem details: -in setting of poor oral intake, electrolyte derangement, improved with IV hydration and improved oral intake (5) Constipation: Status: Acute Problem details: -reported abdominal discomfort with eating prior to arrival leading to decreased oral intake. No bleeding concerns reported. Abdominal film shows moderate stool throughout the colon which may be partial cause. Discussed using bulking product for improved regularity. Discussed risks of laxative/stimulant use and avoidance of these products. Pain resolved day after admission with no further recurrence. (6) Anemia: Status: Acute Problem details: -acute, 9.5, suspected in setting of IV hydration, dilution. No further significant drops. Follow up for recheck with PCP. Remained asymptomatic. DS: Summary Hospital Course Hospital Course: [age] year old female past medical history significant for the anorexia nervosa with her bulimia and laxative use aging otherwise no significant history [facility] patient further management significant electrolyte derangement in setting of recent poor oral intake. Course of care and details as noted above. Electrolytes improved prior to discharge. Core Measures Abstractor met with patient providing contact numbers for [facility] and nutrition services. Encouraged follow-up with these contacts upon discharge. Outpatient follow-up with [facility] clinic to establish care. Status at Discharge Functional status at discharge: independent ambulation Overall status at discharge: patient is back to baseline Time Spent with Patient Time attestation: Total time spent providing and/or coordinating discharge services: Time spent: Greater than 30 minutes Exam Narrative: Exam Narrative: PHYSICAL EXAM General: Pleasant, conversant, NAD Cardiovascular: RRR Pulmonary: No dyspnea Neurological: Alert, answering questions appropriately Skin: Warm, dry. Const: Vital Signs, click to edit/add: Vital Signs - 24 hr 01/23/23 11:15 01/23/23 12:50 01/23/23 15:05 Temperature Pulse Rate 61 69 Pulse Rate [Pulse Oximeter] 75 Respiratory Rate 16 Blood Pressure [Le ft Arm] 102/61 Blood Pressure [Ri ght Arm] Pulse Oximetry 100 Oxygen Delivery Me thod Room Air 01/23/23 15:35 01/23/23 19:19 01/23/23 23:00 Temperature 97.4 F L 98.1 F Pulse Rate Pulse Rate [Pulse Oximeter] 74 68 76 Respiratory Rate 18 18 16 Blood Pressure [Le ft Arm] Blood Pressure [Ri ght Arm] 94/56 L 91/52 L Pulse Oximetry 100 100 Oxygen Delivery Me thod Room Air Room Air 01/24/23 00:15 01/24/23 00:42 01/24/23 03:00 Temperature 98.3 F 98 F Pulse Rate 69 Pulse Rate [Pulse Oximeter] 76 78 Respiratory Rate 16 16 Blood Pressure [Le ft Arm] Blood Pressure [Ri ght Arm] 84/50 L 82/45 L Pulse Oximetry 99 98 Oxygen Delivery Me thod Room Air Room Air 01/24/23 07:00 01/24/23 07:00 Temperature Pulse Rate 71 Pulse Rate [Pulse Oximeter] 79 Respiratory Rate 16 Blood Pressure [Le ft Arm] Blood Pressure [Ri ght Arm] 94/53 L Pulse Oximetry 100 Oxygen Delivery Me thod Room Air DS: Data Data Completed and Pending Labs on day of discharge: Labs from last 24 hours 01/24/23 05:50 WBC 4.37 L RBC 2.84 L Hgb 9.2 L Hct 26.9 L MCV 95 MCH 32 MCHC 34 Plt Count 299 Sodium 136 Potassium 3.7 Chloride 101 Carbon Dioxide 31 Anion Gap 4 L BUN 12 Creatinine 0.6 Estimated Creat Clear 112.77 Estimated GFR 129 Glucose 81 Calcium 8.3 L Magnesium 1.4 L Discharge Plan Discharge Disposition: Home, Self-Care Date of Admission: 01/22/23 08:53 Attending Provider on Discharge: Valeria Muñiz Primary Care Provider: Provider,Not a Local Condition: Guarded Anticipated Discharge Date/Time: 01/24/23 10:05 Discharge Medications: No Action No Known Home Medications Discharge Orders: Discharge Order (Routine); Ordered 01/24/23 Ordered By: Valeria Muñiz Patient Education: Hyponatremia (GEN), Hypokalemia (GEN) Additional Instructions: Your electrolytes have improved to normal. Follow up outpatient in the clinic for recheck in 7-10 days. Follow up outpatient with [facility] services, numbers were provided. Activity Level: No Restrictions Discharge Diet: Regular Follow Up Appointments: Provider,Not a Local [Primary Care Provider] - 02/05/23 ([facility] is preferred) Forms: [facility] Instructions
--- NOTE | 2023-01-24 13:31 | PC.NURSE ---
Discharge - Pt alert, oriented, and cooperative during shift. Pt reported feeling better and appeared to have more energy than previous day. Pt up independently in room, continent of bowel and bladder. Pt denied pain, nausea, dizziness, SOB. Tolerating RA, regular diet, fluids. IV removed with catheter intact, discharge education provided with verbalized understanding. Discharge paperwork signed, Pt d/c to home with sister at approximately 1140.
== END 2023-01-24 11:40 | disposition home or self-care (01) | DRG 641 ==
LOC: ED 01-22 01:17 → MEDSURG 01-22 07:56
PROVIDERS: Family Medicine; Admitting Provider Physician Assistant; Emergency Provider Family Medicine; Visit Provider Family Medicine
DX: E87.6 Hypokalemia (principal); Z68.1 Body mass index [BMI] 19.9 or less, adult; F50.02 Anorexia nervosa, binge eating/purging type; E86.0 Dehydration; E87.1 Hypo-osmolality and hyponatremia; K59.09 Other constipation; R53.1 Weakness; Z86.59 Personal history of other mental and behavioral disorders; D64.9 Anemia, unspecified; R94.31 Abnormal electrocardiogram [ECG] [EKG]; R06.02 Shortness of breath; R42 Dizziness and giddiness; N91.2 Amenorrhea, unspecified; R51.9 Headache, unspecified
CPT/HCPCS: 36415; 71046; 74018; 80048; 80076; 80306; 81001; 81025; 82077; 82803; 83735; 84100; 84145; 84443; 84484; 85025; 85027; 85379; 86140; 87086; 87631; 93005; 94761; 99284; A9270; J0780; J1650; J3480; J7030; J7120

== ENCOUNTER 2024-09-30 16:13 | Outpatient (CLI) | payer OTHER, SELFPAY | END 2024-09-30 16:14 | disposition home or self-care (01) | LOC: AMB 10-04 11:57 | PROVIDERS: Visit Provider Student in an Organized Health Care Education/Training Program | DX: S09.90XA Unspecified injury of head, initial encounter (principal); S59.911A Unspecified injury of right forearm, initial encounter; V43.51XA Car driver injured in collision with sport utility vehicle in traffic accident, initial encounter; Y92.413 State road as the place of occurrence of the external cause | CPT/HCPCS: A0425; A0433 ==

== ENCOUNTER 2024-09-30 16:46 | Emergency (ER) | payer OTHER, SELFPAY ==
[2024-09-30] VITALS (18 sets, daily range): BP systolic 99–111; BP diastolic 54–65; PULSE 82–101; RESP 8–20; TEMP 36.2; O2SAT 98–100
--- OUTSIDE RECORDS SUMMARY | 2024-09-30 16:47 | XMS_ITS | Clinical Summary ---
Author Organization [facility] Address [address] [place] [id number] Care Team Providers Care Chief Client Officer Name Role Phone Summer Batista MD Primary Care Prov ider Allergies No known active allergies Medications cholecalciferol (VITAMIN D3) 1,000 unit tablet Take 1,000 units by mouth once daily. 11/25/[address] 1.5 mg tablet 08/21/2020 Active fluticasone (50 mcg per actuation) nasal solution (FLONASE)Indica tions:Seasonal allergic rhinitis due to pollen Inhale 1 [place] to both nostrils once daily. 16 g 1 01/12/2021 Active escitalopram oxalate (LEXAPRO) 10 mg tabletIndicatio ns:Anorexia nervosa with bulimia (HC) Take 1 Tablet (10 mg) by mouth once daily. 30 Tablet 1 04/05/2021 Active polyethylene glycoL (MIRALAX) 17 gram/scoop powderIndicatio ns:Constipation , acute Mix 1 scoop (17 g) in liquid then take by mouth once daily. 510 g 1 02/05/2023 Active Active Problems Problem Noted Date Diagnosed Date H/o anorexia nervosa with bulimia 02/05/2023 Overview (02/05/2023): Inpatient treatment in 2019 with [facility] program, outpatient in 2020. H/o laxative misuse. Remains amenorrheic. Hospitalized for dehydration, qt prolongation and electrolyte derangements in 01/2023 QT prolongation (qtc 517) 02/05/2023 Amenorrhea 02/05/2023 Constipation, acute 02/05/2023 Vitamin D deficiency 07/19/2013 Myopia 11/12/2012 Immunizations Immunization Administration Dates Next Due COVID-19 vaccine (Say-Hey-Bio NTech 30mcg/0.3mL) 12YO+ MEDHAT-SUCROSE PF, MDV 07/25/2021 COVID-19 vaccine (Say-Hey-Bio NTech 30mcg/0.3mL) PF, MDV 06/28/2020,2020 DTaP 03/11/2007, 1,01/30/2000,10/07,1999 HIB PRP-D (ProHIBIT) 06/04/2000,01/30/2000 HIB-HepB (Comvax) 1999,1999 HPV 9 (Gardasil 9) 10/18/2015,09/13/2014 Hepatitis A (Peds) 04/04/2008,03/11/2007 Hepatitis B (Peds) 07/15/2013, 0,1999,06/06 Hib Conjugate, Unspecified 01/29/2002,06/04/2000 Human Papilloma Virus Vaccine 08/08/2014 Inactivated Polio Vaccine 03/11/2007,,1999,07/29 Influenza Virus, Unspecified 04/04/2008 Influenza, IIV4 01/12/2021,11/12/2019,10/18/2015 Influenza,LAIV4 Live Intrana quiana (Flumist) 11/10/2018,03/03/2012 MENINGOCOCCAL VACCINE 2 VIAL 2MO-55YO (MENVEO) 10/18/2015,06/14/2011 MMR 03/11/2008,03/11/2007,09/03/2000 Pneumococcal conj 7-Valent (Prevnar 7) 1,06/04/2000,01/30/2000 Tdap 06/14/2011,03/11/2007 Varicella Vaccine 06/17/2007,09/03/2000 Family History Medical History Relation Name Comments Good Health Father nimco Lorenzo Blood Disease Maternal Grandfather Diabetes Maternal Grandmother Good Health Mother Jennifer Good Health Paternal Grandfather Cancer lung Hyperlipidemia Paternal Grandmother Hypertension Paternal Grandmother Good Health Sister 1 Geovanna Good Health Sister 2 kendrick Good Health Sister 3 Dania Good Health Sister 4 Christal Relation Name Status Comments Father nimco Lorenzo Alive Maternal Grandfather Alive Maternal Grandmother Alive Mother Jennifer Alive Paternal Grandfather Paternal Grandmother Alive Sister 1 Geovanna Alive Sister 2 kendrick Alive Sister 3 Dania Alive Sister 4 Christal Alive Social History Tobacco Use Types Packs/Day Years Used Date Smoking Tobacco: Never Smokeless Tobacco: Never Tobacco Cessation:Counseling Given: Yes Comments:Neighbors smoke outside Alcohol Use Standard Drinks/Week Comments Never 0 (1 standard drink = 0.6 oz pur e alcohol) PHQ-2 Answer Date Recorded PHQ-2 TOTAL SCORE 2 04/05/2021 Social Connections Answer Date Recorded Frequency of Communication with Friends and Fami ly Not on file 02/10/2021 Financial Resource Strain Answer Date R ecorded Difficulty of Paying Living Expenses Not on file 02/10/2021 Difficulty of Paying Living Expenses Not on file 02/10/2021 Comments No Sex and Gender Information Value Date Recorded Sex Assigned at Not on file Legal Sex Female 8:15 AM [employer] Gender Identity Not on file Sexual Orientation Not on file Obstetrics History Para Term AB IAB SAB Ectopic Multiple Livin g Live Births 0 0 0 0 0 0 0 0 0 0 0 Last Filed Vital Signs Vital Sign Reading Time Taken Comments Blood Pressure 94/61 02/05/2023 10:42 AM [employer]ER Pulse 77 02/05/2023 10:42 AM [employer]ER Temperature 36.1 C (97 F) 03/03/2020 7:54 AM [employer]ER Respiratory Rate - - Oxygen Saturation 100% 02/05/2023 10:42 AM [employer]ER Inhaled Oxygen Concentration - - Weight 47.4 kg (104 lb 6.4 oz) 02/05/2023 10:42 AM [employer] Height 163.8 cm (5' 4.5) 04/05/2021 10:42 AM CS T Body Mass Index 17.64 04/05/2021 10:42 AM [employer]ER Plan of Treatment Health Maintenance Due Date Last Done Comments HIV for age 15-65 06/06/2014 Hepatitis C screening for age 18-79 06/06/2017 Pap test for age 21-65 06/06/2020 Tetanus booster 06/13/2021 06/14/2011, 03/11/2007 BMI (ht and wt on same day) for age 18+ 01/12/2022 01/12/2021, 08/21/2020, 03/03/2020, Additional history exists Depression screening for age 12+ 04/05/2022 04/05/2021, 11/12/2019, 11/10/2018, Additional history exists COVID-19 vaccine series ( season) 2023 07/25/2021, 06/28/2020, 2020 Influenza Vaccine (#1) 2024 , 11/12/2019, 11/10/2018, Additional history exists Pneumococcal series for age 6-49 Aged Out 12/17/2000, 06/04/2000, 01/30/2000 No longer eligible based on patient's age to complete this topic Hepatitis B series for 19+ Completed 07/15, 1999, 1999, Additional history exists HPV series for age 9-26 Completed 10/18/19 16, 09/13/2014, 08/08/2014 Insurance [employer] Care Teams Chief Client Officer Relationship Specialty Start Date End Date Summer Batista MD [address] [place] [address] PCP - General Family Practice 02/05/23
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
== END 2024-09-30 18:46 | disposition home or self-care (01) ==
PROVIDERS: Emergency Provider Student in an Organized Health Care Education/Training Program
DX: M25.512 Pain in left shoulder (principal); S09.90XA Unspecified injury of head, initial encounter; V43.52XA Car driver injured in collision with other type car in traffic accident, initial encounter
CPT/HCPCS: 70450; 72125; 73030; 99284; 99291; G0390